=== PATIENT | female | born 1960 | race Caucasian/White ===

== ENCOUNTER 2017-05-08 11:54 | Inpatient (IN) | payer SELFPAY ==
[~2017-05-08] VITALS: Ht 165.1 cm; Wt 80.1 kg
[~2017-05-08 11:54] MED LIST: METO10TA3 PO; NO HOME MEDS; POLY17PO12 PO
[2017-05-08] MEDS ORDERED: aspirin 81mg tab.chew PO ONE (12:00)
[2017-05-08 12:34] LABS: BASOPHILS % (AUTO) 0.6 % (0-1); EOSINOPHILS # (AUTO) 0.1 X10'3 (0-0.9); HEMATOCRIT 44.5 % (35.0-45.0); HEMOGLOBIN 15.4 g/dl (12.0-16.0); LYMPHOCYTES # (AUTO) 2.1 X10'3 (1.1-4.8); LYMPHOCYTES % (AUTO) 30.2 % (21-51); MEAN CORPUSCULAR HEMOGLOBIN 33.1 PG (27.0-31.0); MEAN CORPUSCULAR HGB CONC 34.7 % (33.0-36.5); MEAN CORPUSCULAR VOLUME 95.4 FL (78-98); MEAN PLATELET VOLUME 7.7 FL (7.4-10.4); MONOCYTES # (AUTO) 0.4 X10'3 (0-0.9); MONOCYTES % (AUTO) 5.8 % (2-12); NEUTROPHILS # (AUTO) 4.2 X10'3 (1.8-7.7); NEUTROPHILS % (AUTO) 61.4 % (42-75); PLATELET COUNT 296 X10'3 (140-440); RED BLOOD COUNT 4.66 X10'6 (4.20-5.60); RED CELL DISTRIBUTION WIDTH 12.9 % (11.5-14.5); WHITE BLOOD COUNT 6.9 X10'3 (4.5-11.0)
[2017-05-08 12:44] LABS: PARTIAL THROMBOPLASTIN TIME 28 SECONDS (22-32); PROTHROMBIN TIME 10.1 SECONDS (9.0-12.0)
[2017-05-08] MEDS: nitroGLYCERIN 0.4mg SUBLingual tab SL PRN ×2 (12:53→13:02)
[2017-05-08 12:56] LABS: ALANINE AMINOTRANSFERASE 30 U/L (12-78); ALBUMIN 3.8 G/DL (3.4-5.0); ALBUMIN/GLOBULIN RATIO 1.1 (1.1-1.5); ALKALINE PHOSPHATASE 73 IU/L (46-116); ANION GAP 7 (8-16); ASPARTATE AMINO TRANSFERASE 16 U/L (10-37); BILIRUBIN,TOTAL 0.4 MG/DL (0.1-1.0); BLOOD UREA NITROGEN 15 MG/DL (7-18); CHLORIDE 105 MMOL/L (99-107); GLUCOSE 106 MG/DL (70-104); SODIUM 141 MMOL/L (135-145); TOTAL CARBON DIOXIDE 29.2 MMOL/L (24-32); TOTAL PROTEIN 7.4 G/DL (6.4-8.2); eGFR 58 ML/MIN
[2017-05-08] MEDS ORDERED: nitroGLYCERIN 0.4mg/hour patch TD ONE (13:10)
[2017-05-08] MEDS ORDERED: PHEN37.54 PO (13:38)
[2017-05-08] MEDS ORDERED: ALBU18HF2 INH (13:40)
[2017-05-08] MEDS ORDERED: FLUT1BLS3 (13:42)
[2017-05-08] MEDS ORDERED: normal saline 1000ml 1,000 ML IV SCH (14:07)
[2017-05-08] MEDS ORDERED: HYDROcodone/acetaminophen 5mg/325mg tablet PO PRN (14:10)
[2017-05-08] MEDS ORDERED: magnesium hydroxide 30ml (MOM) UD suspension PO PRN (14:10)
[2017-05-08] MEDS ORDERED: acetaminophen 325mg tablet PO PRN (14:10)
[2017-05-08] MEDS ORDERED: diphenhydrAMINE 50 mg/ml inj IV PRN (14:10)
[2017-05-08] MEDS ORDERED: ondansetron/PF 4mg/2ml inj IV PRN (14:10)
[2017-05-08] MEDS ORDERED: metoclopramide 5 mg/ml inj IV PRN (14:10)
[2017-05-08] MEDS ORDERED: mag hydrox/Alum hydrox/simeth 30ml oral suspension PO PRN (14:10)
[2017-05-08] MEDS ORDERED: bisacodyl 10mg suppository rectal RC PRN (14:10)
[2017-05-08] MEDS ORDERED: acetaminophen 650mg rectal suppository RC PRN (14:10)
[2017-05-08] MEDS ORDERED: HYDROcodone/acetaminophen 10/325mg tab PO PRN (14:10)
[2017-05-08] MEDS ORDERED: diphenhydrAMINE 25mg capsule PO PRN (14:10)
[2017-05-08] MEDS ORDERED: albuterol 2.5 MG/3 ML nebule NEB PRN (14:15)
[2017-05-08] MEDS ORDERED: regadenoson 0.4mg/5ml syringe IV PRN (15:15)
[2017-05-08] MEDS ORDERED: nitroGLYCERIN 0.4mg SUBLingual tab SL PRN (15:15)
[2017-05-08] MEDS ORDERED: metoprolol tartrate 1mg/ml inj IV PRN (15:15)
[2017-05-08] MEDS ORDERED: aminophylline 250mg/10ml inj. IV PRN (15:15)
[2017-05-08] MEDS: nicotine 21mg patch - 24 hr TD SCH (15:19)
[2017-05-08] MEDS: acetaminophen 325mg tablet PO PRN (17:56)
[2017-05-08 19:40] VITALS: BP 108/52
[2017-05-08] MEDS: metoprolol tartrate 12.5mg (1/2 tablet) PO SCH ×2 (20:00→21:39)
[2017-05-08] MEDS: docusate sod 100mg capsule PO SCH (20:00)
[2017-05-08] MEDS: enoxaparin 80mg/0.8ml syringe SUBCUT SCH (21:37)
[2017-05-08] MEDS: temazepam 15mg capsule PO PRN (21:39)
[2017-05-08 23:40] VITALS: BP 125/72
[2017-05-09] VITALS (15 sets, daily range): BP systolic 115–151; BP diastolic 62–78
[2017-05-09] MEDS: acetaminophen 325mg tablet PO PRN (01:12)
[2017-05-09 01:37] LABS: ALANINE AMINOTRANSFERASE 30 U/L (12-78); ALBUMIN 3.3 G/DL (3.4-5.0); ALKALINE PHOSPHATASE 60 IU/L (46-116); ANION GAP 7 (8-16); ASPARTATE AMINO TRANSFERASE 13 U/L (10-37); BILIRUBIN,TOTAL 0.3 MG/DL (0.1-1.0); BLOOD UREA NITROGEN 21 MG/DL (7-18); BUN/CREATININE RATIO 25.6 (6.6-38.0); CALCIUM 8.8 MG/DL (8.5-10.1); CHLORIDE 106 MMOL/L (99-107); CREATININE 0.82 MG/DL (0.40-0.90); GLUCOSE 96 MG/DL (70-104); POTASSIUM 4.2 MMOL/L (3.5-5.1); SODIUM 141 MMOL/L (135-145); TOTAL CARBON DIOXIDE 27.8 MMOL/L (24-32); TOTAL PROTEIN 6.6 G/DL (6.4-8.2); eGFR 72 ML/MIN
[2017-05-09 01:41] LABS: CHOL/HDL RATIO 4.7 (0.00-4.99); CHOLESTEROL 213 MG/DL (0-200); HDL CHOLESTEROL 45 MG/DL (35-60); LDL CHOLESTEROL 143 MG/DL (50-100); TRIGLYCERIDES 182 MG/DL (20-135)
[2017-05-09 02:12] LABS: BASOPHILS # (AUTO) 0.1 X10'3 (0-0.2); BASOPHILS % (AUTO) 0.7 % (0-1); EOSINOPHILS # (AUTO) 0.2 X10'3 (0-0.9); EOSINOPHILS % (AUTO) 2.4 % (0-6); HEMATOCRIT 41.2 % (35.0-45.0); HEMOGLOBIN 14.2 g/dl (12.0-16.0); LYMPHOCYTES # (AUTO) 3.2 X10'3 (1.1-4.8); LYMPHOCYTES % (AUTO) 33.3 % (21-51); MEAN CORPUSCULAR HGB CONC 34.5 % (33.0-36.5); MEAN CORPUSCULAR VOLUME 95.6 FL (78-98); MEAN PLATELET VOLUME 8.4 FL (7.4-10.4); MONOCYTES # (AUTO) 0.6 X10'3 (0-0.9); MONOCYTES % (AUTO) 6.1 % (2-12); NEUTROPHILS # (AUTO) 5.5 X10'3 (1.8-7.7); NEUTROPHILS % (AUTO) 57.5 % (42-75); PLATELET COUNT 255 X10'3 (140-440); RED BLOOD COUNT 4.31 X10'6 (4.20-5.60); RED CELL DISTRIBUTION WIDTH 13.2 % (11.5-14.5); WHITE BLOOD COUNT 9.6 X10'3 (4.5-11.0)
[2017-05-09] MEDS ORDERED: nitroGLYCERIN 0.1mg/hour patch TD SCH (08:00)
[2017-05-09] MEDS: atorvastatin 10mg tablet PO SCH (08:00)
[2017-05-09] MEDS: lisinopril 5mg tablet PO SCH (08:00)
[2017-05-09] MEDS: docusate sod 100mg capsule PO SCH ×2 (08:00→20:00)
[2017-05-09] MEDS: metoprolol tartrate 12.5mg (1/2 tablet) PO SCH ×2 (08:00→20:00)
[2017-05-09] MEDS ORDERED: regadenoson 0.4mg/5ml syringe IV ONE (08:57)
[2017-05-09] MEDS ORDERED: aminophylline inj. 10 ML IV ONE (08:57)
[2017-05-09] MEDS: pantoprazole 40mg Tablet.DR PO SCH (10:42)
[2017-05-09] MEDS: enoxaparin 80mg/0.8ml syringe SUBCUT SCH ×2 (10:43→20:46)
[2017-05-09] MEDS: aspirin 81mg tab.chew PO SCH (10:43)
[2017-05-09] MEDS: nicotine 21mg patch - 24 hr TD SCH (10:44)
[2017-05-09] MEDS ORDERED: FLU VACC QS2017-18 36MOS UP/PF 60 MCG/0.5 ML SYRINGE IMVAC ONE (10:50)
[2017-05-09] MEDS ORDERED: ATOR10TA PO (12:29)
[2017-05-09] MEDS ORDERED: NITR0.4T51 SL (12:29)
[2017-05-09] MEDS ORDERED: ASPI-1265 PO (12:29)
[2017-05-09] MEDS ORDERED: nitroGLYCERIN 0.4mg SUBLingual tab SL PRN (14:10)
[2017-05-09] MEDS: normal saline 1000ml 1,000 ML IV SCH ×2 (14:16→22:34)
[2017-05-09] MEDS: temazepam 15mg capsule PO PRN (22:33)
[2017-05-10] VITALS (13 sets, daily range): BP systolic 102–145; BP diastolic 41–82
[2017-05-10 04:38] LABS: BASOPHILS # (AUTO) 0.1 X10'3 (0-0.2); BASOPHILS % (AUTO) 1.2 % (0-1); EOSINOPHILS # (AUTO) 0.1 X10'3 (0-0.9); EOSINOPHILS % (AUTO) 1.7 % (0-6); HEMATOCRIT 38.8 % (35.0-45.0); HEMOGLOBIN 13.5 g/dl (12.0-16.0); LYMPHOCYTES # (AUTO) 2.3 X10'3 (1.1-4.8); LYMPHOCYTES % (AUTO) 32.7 % (21-51); MEAN CORPUSCULAR HEMOGLOBIN 32.9 PG (27.0-31.0); MEAN CORPUSCULAR HGB CONC 34.7 % (33.0-36.5); MEAN CORPUSCULAR VOLUME 94.8 FL (78-98); MEAN PLATELET VOLUME 7.8 FL (7.4-10.4); MONOCYTES # (AUTO) 0.5 X10'3 (0-0.9); MONOCYTES % (AUTO) 7.5 % (2-12); NEUTROPHILS % (AUTO) 56.9 % (42-75); PLATELET COUNT 237 X10'3 (140-440); RED CELL DISTRIBUTION WIDTH 13.3 % (11.5-14.5)
[2017-05-10 05:00] LABS: ALANINE AMINOTRANSFERASE 24 U/L (12-78); ALBUMIN 2.7 G/DL (3.4-5.0); ALBUMIN/GLOBULIN RATIO 0.9 (1.1-1.5); ALKALINE PHOSPHATASE 49 IU/L (46-116); ANION GAP 8 (8-16); ASPARTATE AMINO TRANSFERASE 12 U/L (10-37); BILIRUBIN,TOTAL 0.3 MG/DL (0.1-1.0); BLOOD UREA NITROGEN 17 MG/DL (7-18); BUN/CREATININE RATIO 23.6 (6.6-38.0); CALCIUM 7.4 MG/DL (8.5-10.1); CHLORIDE 113 MMOL/L (99-107); CREATININE 0.72 MG/DL (0.40-0.90); GLUCOSE 83 MG/DL (70-104); POTASSIUM 3.6 MMOL/L (3.5-5.1); SODIUM 142 MMOL/L (135-145); TOTAL CARBON DIOXIDE 20.9 MMOL/L (24-32); TOTAL PROTEIN 5.7 G/DL (6.4-8.2); eGFR 84 ML/MIN
[2017-05-10] MEDS: enoxaparin 80mg/0.8ml syringe SUBCUT SCH ×2 (07:17→20:26)
[2017-05-10] MEDS: lisinopril 5mg tablet PO SCH (07:18)
[2017-05-10] MEDS: aspirin 81mg tab.chew PO SCH (07:18)
[2017-05-10] MEDS: metoprolol tartrate 12.5mg (1/2 tablet) PO SCH (07:18)
[2017-05-10] MEDS: docusate sod 100mg capsule PO SCH ×2 (07:18→20:25)
[2017-05-10] MEDS: nicotine 21mg patch - 24 hr TD SCH (07:25)
[2017-05-10] MEDS: atorvastatin 10mg tablet PO SCH (07:26)
[2017-05-10] MEDS: pantoprazole 40mg Tablet.DR PO SCH (07:26)
[2017-05-10] MEDS ORDERED: FLU VACC QS2017-18 36MOS UP/PF 60 MCG/0.5 ML SYRINGE IMVAC ONE (10:00)
[2017-05-10] MEDS ORDERED: iohexol 350MG/ML 100ml bottle IV ONE (10:50)
[2017-05-10] MEDS ORDERED: fentaNYL/PF 50MCG/1 ML 2ML syringe ONE (10:50)
[2017-05-10] MEDS ORDERED: iohexol 350 MG/ML 50ML vial IV ONE (10:50)
[2017-05-10] MEDS ORDERED: midazolam 2 mg/2 ml injection ONE (10:50)
[2017-05-10] MEDS ORDERED: LIDOcaine 1% 30ml vial 30 ML ONE (10:50)
[2017-05-10] MEDS: normal saline 1000ml 1,000 ML IV SCH ×3 (10:56→20:32)
[2017-05-10] MEDS ORDERED: OXAZEpam 15mg capsule PO PRN (12:30)
[2017-05-10] MEDS ORDERED: proCHLORperazine 10 MG/2 ml inj IV PRN (12:30)
[2017-05-10] MEDS: acetaminophen 325mg tablet PO PRN ×2 (14:28→21:18)
[2017-05-10] MEDS: temazepam 15mg capsule PO PRN (21:15)
[2017-05-11] MEDS: normal saline 1000ml 1,000 ML IV SCH (05:28)
[2017-05-11 06:09] LABS: BASOPHILS # (AUTO) 0.1 X10'3 (0-0.2); BASOPHILS % (AUTO) 1.8 % (0-1); EOSINOPHILS # (AUTO) 0.2 X10'3 (0-0.9); EOSINOPHILS % (AUTO) 2.5 % (0-6); HEMATOCRIT 40.7 % (35.0-45.0); HEMOGLOBIN 14.1 g/dl (12.0-16.0); LYMPHOCYTES # (AUTO) 1.7 X10'3 (1.1-4.8); LYMPHOCYTES % (AUTO) 27.4 % (21-51); MEAN CORPUSCULAR HEMOGLOBIN 32.9 PG (27.0-31.0); MEAN CORPUSCULAR HGB CONC 34.6 % (33.0-36.5); MEAN CORPUSCULAR VOLUME 95.3 FL (78-98); MEAN PLATELET VOLUME 8.3 FL (7.4-10.4); MONOCYTES # (AUTO) 0.6 X10'3 (0-0.9); NEUTROPHILS # (AUTO) 3.7 X10'3 (1.8-7.7); NEUTROPHILS % (AUTO) 58.3 % (42-75); PLATELET COUNT 206 X10'3 (140-440); RED BLOOD COUNT 4.27 X10'6 (4.20-5.60); RED CELL DISTRIBUTION WIDTH 12.6 % (11.5-14.5); WHITE BLOOD COUNT 6.4 X10'3 (4.5-11.0)
[2017-05-11 06:38] LABS: ALANINE AMINOTRANSFERASE 32 U/L (12-78); ALBUMIN/GLOBULIN RATIO 0.9 (1.1-1.5); ALKALINE PHOSPHATASE 63 IU/L (46-116); ANION GAP 9 (8-16); ASPARTATE AMINO TRANSFERASE 24 U/L (10-37); BILIRUBIN,TOTAL 0.4 MG/DL (0.1-1.0); BLOOD UREA NITROGEN 14 MG/DL (7-18); BUN/CREATININE RATIO 16.1 (6.6-38.0); CHLORIDE 107 MMOL/L (99-107); CREATININE 0.87 MG/DL (0.40-0.90); GLUCOSE 101 MG/DL (70-104); POTASSIUM 3.9 MMOL/L (3.5-5.1); SODIUM 139 MMOL/L (135-145); TOTAL PROTEIN 6.2 G/DL (6.4-8.2); eGFR 68 ML/MIN
[2017-05-11 08:00] VITALS: BP 131/75
[2017-05-11] MEDS: docusate sod 100mg capsule PO SCH (09:07)
[2017-05-11] MEDS: pantoprazole 40mg Tablet.DR PO SCH (09:07)
[2017-05-11] MEDS: aspirin 81mg tab.chew PO SCH (09:07)
[2017-05-11] MEDS: atorvastatin 10mg tablet PO SCH (09:07)
[2017-05-11] MEDS: nicotine 21mg patch - 24 hr TD SCH (09:08)
[2017-05-11] MEDS: enoxaparin 80mg/0.8ml syringe SUBCUT SCH (09:10)
== END 2017-05-11 14:15 | disposition home or self-care (01) | DRG 287 ==
LOC: ER 11:55 → ED HOLD 14:07 → EDBEDREQ 18:58 → MED 3N 19:00
PROVIDERS: ADMIT Family Medicine; ATTEND Family Medicine
PROC: 4A02XM4 Measurement of Cardiac Total Activity, External Approach (ICD-10-PCS; principal; 2017-05-09)
PROC: 3E073KZ Introduction of Other Diagnostic Substance into Coronary Artery, Percutaneous Approach (ICD-10-PCS; 2017-05-09)
PROC: 4A023N7 Measurement of Cardiac Sampling and Pressure, Left Heart, Percutaneous Approach (ICD-10-PCS; 2017-05-10)
PROC: B2111ZZ Fluoroscopy of Multiple Coronary Arteries using Low Osmolar Contrast (ICD-10-PCS; 2017-05-10)
PROC: B2151ZZ Fluoroscopy of Left Heart using Low Osmolar Contrast (ICD-10-PCS; 2017-05-10)
DX: I25.110 Atherosclerotic heart disease of native coronary artery with unstable angina pectoris (principal); C43.9 Malignant melanoma of skin, unspecified; E86.0 Dehydration; E78.5 Hyperlipidemia, unspecified; F17.200 Nicotine dependence, unspecified, uncomplicated; K21.9 Gastro-esophageal reflux disease without esophagitis; K31.9 Disease of stomach and duodenum, unspecified; J44.9 Chronic obstructive pulmonary disease, unspecified; F32.9 Major depressive disorder, single episode, unspecified; I10 Essential (primary) hypertension; Z88.2 Allergy status to sulfonamides; Z88.1 Allergy status to other antibiotic agents; Z88.6 Allergy status to analgesic agent; Z88.8 Allergy status to other drugs, medicaments and biological substances; Z82.49 Family history of ischemic heart disease and other diseases of the circulatory system; Z98.51 Tubal ligation status; Z79.899 Other long term (current) drug therapy; Z79.01 Long term (current) use of anticoagulants
CPT/HCPCS: 36415; 71045; 78452; 80053; 80061; 83735; 83880; 84484; 85025; 85610; 85730; 87070; 93005; 93017; 93458; 94760; 99152; 99285; A4620; A6257; A9500; J0280; J1644; J1650; J2250; J3010; J3490; J7030; Q2037; Q9967